=== PATIENT | female | born 1995 | race Two or more races ===

== ENCOUNTER 2017-03-03 16:29 | Emergency (ER) | payer MEDICAID, OTHER ==
[~2017-03-03] VITALS: Ht 166.4 cm; Wt 98.2 kg
[2017-03-03 17:40] LABS: HEMATOCRIT 45.7 % (34.6-47.8); HEMOGLOBIN 15.6 g/dL (11.7-16.4); WHITE BLOOD COUNT 11.5 x10^3/uL (3.4-10)
[2017-03-03 17:52] LABS: BLOOD UREA NITROGEN 5 mg/dL (7-18)
[2017-03-03 18:31] VITALS: BP 111/47
== END 2017-03-03 18:35 | disposition home or self-care (01) ==
LOC: ED 17:33
DX: R06.00 Dyspnea, unspecified (principal); M94.0 Chondrocostal junction syndrome [Tietze]
CPT/HCPCS: 36415; 71020; 80048; 82040; 85025; 85379; 93005; 99285